=== PATIENT | female | born 1990 | race Caucasian/White ===

== ENCOUNTER 2016-12-11 17:28 | Emergency (ER) | payer OTHER ==
[~2016-12-11] VITALS: Ht 160 cm; Wt 96.4 kg
[2016-12-11 17:32] VITALS: BP 128/63; PULSE 96; RESP 24; O2SAT 97
[2016-12-11] MEDS ORDERED: 0.9% Sodium Chloride 1,000 ML IV ONE (18:29)
[2016-12-11] MEDS ORDERED: Ondansetron 2 mg/mL 2 mL Inj IVPUSH ONE (18:30)
[2016-12-11 18:41] LABS: BASOPHILS % (AUTO) 0.3 % (0-3); EOSINOPHILS % (AUTO) 1.7 % (0-5); MONOCYTES % (AUTO) 6.9 % (4-12); Mean Corpuscular Hemoglobin 28.3 pg (27.0-35.0); Mean Corpuscular Volume 84.8 fL (81-100); NEUTROPHILS % (AUTO) 54.8 % (40-74); Platelet Count 270 bil/L (150-400)
--- NOTE | 2016-12-11 18:58 | ED.REPORT ---
HPI-Abd Pain F Under 40 Date of Service Dec 11, 2016 ED Provider: Luis Manuel Hare PA-C The patient is an otherwise healthy 26 year old female s/p tubal ligation and vaginal mesh placement, who presents to the emergency department complaining of constant lower abdominal pain that began earlier today. The pain began 10 minutes after having vaginal intercourse. The pain is worse with movement. She was feeling fine prior to onset. She still has her appendix. She denies fever, chills, nausea, vomiting, diarrhea or constipation. She is still able to pass gas. Nursing Notes Stated Complaint: ABDOMINAL PAIN Chief Complaint: Female Abdominal Pain Nursing Notes Reviewed: Yes Allergies: Coded Allergies: morphine (Verified Adverse Reaction, Severe, N&V, BURNING SENSATION ALL OVER BODY, 05/02/16) Scheduled PRN Hyoscyamine SL (Levsin SL) 0.125 Mg Tab.subl 0.125 MG SL TID PRN PRN For Pain Ondansetron ODT (Ondansetron ODT) 4 Mg Tab.rapdis 4 MG PO Q4H PRN PRN For Nausea General Time Seen by MD: 18:57 Chief Complaint Abdominal pain Hx Obtained From: Patient Arrived By: Walk-in Sudden in Onset?: Yes Onset Occurred: 1 - 4 hours ago Context of Onset: [place] (10 minutes after) Symptom Duration: Since onset Location: : Abdomen lower Quality: Painful Radiation: : Does not radiate Severity: Current: Moderate Severity: Maximum: Moderate Recent Healthcare: No recent doctor visit, No recent hospitalization Similar Sx Previous: No Past Medical History Past Medical History Denies Past Surgical History Tubal ligation Vaginal mesh placement Kidney surgery Family History Noncontributory Smoking History Never Smoker Social History Other Social History: Good social support, , Local resident Ambulatory Status Independent Review of Systems Constitutional: Denies: Chills, Fever GI: Reports: Abdominal pain, Denies: Constipation, Diarrhea, Nausea, Vomiting Complete sys rev & neg: except as marked. Physical Exam Initial Vital Signs Vital Signs (First) Date Time Temp Pulse Resp B/P Pulse Ox O2 Delivery O2 Flow Rate FiO2 12/11/16 17:32 36.8 96 24 128/63 97 Room Air Initial VS: Reviewed Head / Eyes: Atraumatic, Normocephalic, PERRL ENT: Mucous membranes moist, Conjunctiva normal, No scleral icterus Neck: Supple, Non-tender, Full range of motion Lymphatic: No lymphadenopathy Extremities: Vascular intact, Neuro intact, No swelling, No tenderness Skin: Warm, Dry, No cyanosis Neurologic: Alert, Oriented, Nonfocal Psychiatric: Mood/affect normal, Behavior normal, Normal thought content General/Constitutional: Awake, Alert Appearance / Presentation: Positive: Obese Respiratory / Chest: Atraumatic, Breath sounds NL, Breath sounds = bilat, No respiratory distress, No rales, No rhonchi, No wheezing Cardiovascular: Heart rate NL, Regular rhythm, Heart sounds NL, No gallop, No murmurs, No rubs, Peripheral circulation NL Abdomen: Soft, McBurney's non-tender, No guarding, No rebound, BS normoactive, No distention, No hernia, No palpable mass Tenderness/Guarding/Rebound: Positive: Tender RLQ... Back: Inspection NL, Non-tender, No CVA tenderness Interpretation & Diagnostics ABDOMINAL US IMPRESSION: 1. No sonographic abnormalities identified. 2. No evidence of ovarian torsion identified in the current study. Please note intermittent torsion cannot be excluded by ultrasound imaging. 3. Appendix is not visualized. Dictated by: Kiera Trevino MD, PhD on 12/11/2016 at 20:[address] IMPRESSION: Normal appendix. Dictated by Ingrid Ramachandran M.D. on 12/11/2016 at 10:52:11 PM [facility] Lab Results Interpretation Result Diagram: 12/11/16 1837 12/11/16 1837 Test 12/11/16 18:30 12/11/16 18:37 12/11/16 20:23 Hold Purple Top Tube Received (Received) Hold Blue Top Tube Received (Received) Hold Red Top Tube Received (Received) Hold [place] Top Tube Received (Received) White Blood Count 10.4th/mm3 (3.8-10.1) Red Blood Count 4.95mil/mm3 (3.90-5.20) Hemoglobin 14.0g/dL (12.0-15.6) Hematocrit 42.0% (35.0-46.0) Mean Corpuscular Volume 84.8fL (81-100) Mean Corpuscular Hemoglobin 28.3pg (27.0-35.0) Mean Corpuscular Hemoglobin Concent 33.3% (32.0-37.0) Red Cell Distribution Width 13.3% (12.3-15.4) Platelet Count 270bil/L (150-400) Neutrophils (%) (Auto) 54.8% (40-74) Lymphocytes (%) (Auto) 36.2% (14-46) Monocytes (%) (Auto) 6.9% (4-12) Eosinophils (%) (Auto) 1.7% (0-5) Basophils (%) (Auto) 0.3% (0-3) Sodium Level 141mEq/L (134-144) Potassium Level 3.9mEq/L (3.5-5.2) Chloride Level 104mEq/L (97-108) Carbon Dioxide Level 22mmol/L (18-29) Blood Urea Nitrogen 10mg/dL (6-20) Creatinine 0.76mg/dL (0.57-1.00) Estimat Glomerular Filtration Rate 131mL/min (>59) Glucose Level 97mg/dL (60-99) Calcium Level 9.4mg/dL (8.5-10.1) Total Bilirubin 0.3mg/dL (0.0-1.2) Aspartate Amino Transf (AST/SGOT) 25U/L (0-50) Alanine Aminotransferase (ALT/SGPT) 12U/L (0-32) Alkaline Phosphatase 54U/L (25-150) Total Protein 8.2g/dL (6.4-8.4) Albumin 4.6g/dL (3.4-5.0) Lipase 39U/L (13-60) Hold Urine Received (Received) Re-Eval/Medical Decision Med Decision/Clinical Course 26-year-old female with no past medical history of multiple surgical histories here with right lower quadrant pain. Differential diagnosis includes but is not limited to appendicitis versus ovarian torsion versus urinary tract infection versus kidney stone. Urinalysis is normal. Labs are remarkable for mild leukocytosis, otherwise normal CBC and CMP. Ultrasound did not show any evidence of ovarian torsion. CT did not show any intra-abdominal pathology. Patient was given a prescription for Levsin and Zofran to go home with. She has been very strict return precautions and is amenable to discharge at this time with follow-up with her primary care physician. Source of Hx: Old records Re-Evaluation/Progress #1: Time of Eval: 20:27 Re-Evaluation/Progress Note: Discussed plan for CT scan. Re-Evaluation/Progress #2: Time of Eval: 22:59 Re-Evaluation/Progress Note: Rechecked the patient. Discussed workup results, diagnosis, and plan for discharge. All questions were addressed. Counseled Regarding: Diagnosis, Lab results, Need for follow-up, When/why to return to ED Discharge & Departure Primary Impression: Abdominal pain Abdominal location: lower abdomen Qualified Code: R10.30 - Lower abdominal pain, unspecified Disposition: Home Discharge Condition All VS Reviewed: Yes Condition: Stable Patient Instructions: Acute Abdominal Pain (ED) Additional Instructions: Your workup results today are reassuring. There is no evidence of anything life threatening at this time. Take the medication as prescribed. Call your regular doctor tomorrow to schedule a followup appointment. Return to the emergency department for any new or concerning symptoms. Referrals: Aspen Lr MD (PCP) Scribe Attestation Portions of this note were transcribed by Karime Rose. I, Dr. Garcia personally performed the history, physical exam and medical decision-making; I reviewed and confirmed the accuracy of the information in the transcribed note. Signed by : Tamie Sanchez, 12/11/2016 and 1110. copies to: Aspen Lr MD, Rebecca A MD Dec 11, 2016 18:57 Karime Rose Dec 11, 2016 19:06
[2016-12-11] MEDS: HYDROmorphone 0.5 mg/0.5 mL iSecure Syringe IVPUSH PRN ×4 (19:22→23:03)
--- NOTE | 2016-12-11 20:40 | DRSVH ---
PROCEDURE: US PELVIC SONOGRAM + TRANSVAGINAL SONOGRAM INDICATIONS: RIGHT PELVIC PAIN TECHNIQUE: Real-time scanning was performed of the pelvic organs, with image documentation. Additional endovagi nal scanning was necessary due to incomplete visualization of the adnexal and endometrial structures by transabdominal scanning. COMPARISON: None. FINDINGS: Transabdominal scanning: Limited scanning through the kidneys shows no hydronephrosis. No pathologi c free abdominal or pelvic fluid. The appendix is not identified. Endovaginal scanning: Uterus: Uterus is anteverted Uterus is normal in size at 8.8 x 4.9 x 6.2 cm. The endometrium measur es 14.1 mm in combined thickness. Ovaries: Right adnexa measures 4.0 x 1.7 x 3.3 cm. Left adnexa measures 3.4 x 2.2 x 2.5 cm with sma ll follicular cysts noted in the right adnexa. Color Doppler evaluation demonstrates normal arterial and venous flow to the adnexa bilaterally. IMPRESSION: 1. No sonographic abnormalities identified. 2. No evidence of ovarian torsion identified in the current study. Please note intermittent torsion cannot be excluded by ultrasound imaging. 3. Appendix is not visualized. Dictated by: Kiera Trevino MD, PhD on 12/11/2016 at 20:39 Approved by: Kiera Trevino MD, PhD on 12/11/2016 at 20:39
[2016-12-11] MEDS ORDERED: ONDA4TAB12 PO (23:04)
[2016-12-11] MEDS ORDERED: HYOS0.1281 SL (23:04)
[2016-12-11 23:19] VITALS: RESP 18
--- NOTE | 2016-12-12 07:20 | DRSVH ---
PROCEDURE: CT ABDOMEN AND PELVIS WITH CONTRAST ([id number]) INDICATIONS: RLQ pain TECHNIQUE: After the administration of intravenous contrast, 5 mm thick sections acquired from the diaphragm to the symphysis. 5 mm coronal and sagittal reformats were acquired. For radiation dose reduction, the following was used: automated exposure control, adjustment of mA and/or kV according to patient sonia reynolds. COMPARISON: [facility], US, US PELVIC+TRANSVAG, 12/11/2016, 18:59. FINDINGS: Image quality: Excellent. ABDOMEN: Lung bases: Lung bases are clear. Heart size is normal. Solid organs: Liver and spleen are normal in size and enhancement. Gallbladder is unremarkable. Bi liary system is non dilated. Pancreas enhances normally. No adrenal nodules. There is marked right renal atrophy and scarring. No renal obstruction or hydronephrosis. Peritoneum and bowel: Bowel loops demonstrate normal wall thickness and caliber. No free air. Mild dependent pelvic fluid is noted. The appendix is within normal limits. No surrounding fluid. Nodes and vessels: No retroperitoneal or mesenteric adenopathy by size criteria. Aorta and inferior vena cava are normal in size. Miscellaneous: No ventral hernias. PELVIS: Genitourinary: Bladder wall thickness is normal. There is area of enhancement surrounding the right adnexa with a small amount of fluid. Miscellaneous: No inguinal hernias or adenopathy. Bones: No suspicious bony lesions. No vertebral body compression fractures. IMPRESSION: 1. Appendix is unremarkable. 2. Dependent free fluid within the pelvis as well surrounding the right adnexa with focus of enhancem ent. Finding is suspicious for an involuting/partially collapsed hemorrhagic cyst. Dictated by: Yesenia Pearson M.D. on 12/12/2016 at 7:19 Approved by: Yesenia Pearson M.D. on 12/12/2016 at 7:19
== END 2016-12-11 23:20 | disposition home or self-care (01) ==
LOC: EDUNIT# 17:28 → EDBD 17:28 → SED 17:28
DX: R10.31 Right lower quadrant pain (principal); X58.XXXA Exposure to other specified factors, initial encounter; Y92.9 Unspecified place or not applicable; Y93.89 Activity, other specified; Y99.8 Other external cause status; Z98.51 Tubal ligation status; Z96.0 Presence of urogenital implants; Z88.5 Allergy status to narcotic agent
CPT/HCPCS: 36415; 74177; 76830; 76856; 80053; 81025; 83690; 85025; 96361; 96374; 96375; 96376; 99285; J1170; J2405; J7030; Q9967